=== PATIENT | female | born 1955 | race Caucasian/White ===

== ENCOUNTER 2016-07-29 08:44 | Outpatient (CLI) | payer OTHER ==
[2016-07-29] MEDS ORDERED: NA BICARBONATE 50 MEQ/50 ML VIAL ONE (09:21)
[2016-07-29] MEDS ORDERED: BUPIVACAINE 0.25% 30 ML SDV ONE (09:21)
[2016-07-29] MEDS ORDERED: fentaNYL 100 MCG/2 ML INJ ONE (09:39)
[2016-07-29] MEDS ORDERED: MIDAZOLAM 2 MG/2 ML VIAL ONE (09:39)
[2016-07-29] MEDS ORDERED: NS 1,000 ML IV SCH (10:00)
== END 2016-07-29 13:25 | disposition home health service (06) ==
LOC: FIMAGING 08:44
PROC: 0FB13ZX Excision of Right Lobe Liver, Percutaneous Approach, Diagnostic (ICD-10-PCS; principal; 2016-07-29 10:40)
DX: K76.0 Fatty (change of) liver, not elsewhere classified (principal)
CPT/HCPCS: J2250; J3010

== ENCOUNTER → 2016-08-22 | Outpatient (CLI) | payer OTHER ==
[~2016-08-22] MED LIST: IOPAMIDOL (ISOVUE-300) 100 ML BTL ONE
[2016-08-22 08:07] LABS: CREATININE 1.1 mg/dL (0.6-1.0)
== END ==
LOC: FIMAGING 06:59
DX: R94.5 Abnormal results of liver function studies (principal); R74.8 Abnormal levels of other serum enzymes; I70.0 Atherosclerosis of aorta; I77.89 Other specified disorders of arteries and arterioles
CPT/HCPCS: Q9967